=== PATIENT | female | born 1985 | race Caucasian/White ===

== ENCOUNTER 2016-10-04 23:37 | Emergency (ER) | payer MEDICAID ==
[2014-10-31 20:02] VITALS: BMI 53.4
[~2016-10-04 23:37] MED LIST: IBUPROFEN800 MG PO; PERCOCET 10/3251 TA1 PO
[2016-10-05 00:48] LABS: APPEARANCE CLEAR (CLEAR); BILIRUBIN 1+ (NEGATIVE); COLOR DK YELLOW (YELLOW); GLUCOSE NEGATIVE (NEGATIVE); KETONE MODERATE mg/dL (NEGATIVE); LEUKOCYTE ESTERASE NEGATIVE (NEGATIVE); NITRITE NEGATIVE (NEGATIVE); PROTEIN NEGATIVE (NEGATIVE); SPECIFIC GRAVITY 1.015 (1.005-1.020)
[2016-10-05 01:08] LABS: EOSINOPHILS 0.3 % (0-7); HEMATOCRIT 25.8 % (36.0-48.0); HEMOGLOBIN 8.6 g/dL (12-16); IMMATURE GRANULOCYTES 0.6 % (0-5); LYMPHOCYTES 39.7 % (15-50); MCH 29.3 pg (26.0-34.0); MCHC 33.3 g/dL (31.0-37.0); MCV 87.8 fL (80.0-100.0); MEAN PLATELET VOLUME 9.2 fL (7.4-10.4); MONOCYTES 9.5 % (2-11); NEUTROPHILS 48.9 % (40-80); RBC 2.94 10x6/uL (4.00-5.40); RDW 18.5 % (11.5-14.5); WBC 3.2 10x3/uL (4.8-10.8)
[2016-10-05 01:14] LABS: PLATELET COUNT 117 10x3/uL (130-400)
[2016-10-05 01:20] LABS: ALBUMIN 2.8 g/dL (3.4-5.0); ALKALINE PHOSPHATASE 59 U/L (46-116); ALT (SGPT) 59 U/L (10-68); CALC OSMOLALITY 271 mosm/kg (275-300); CALCIUM 7.6 mg/dL (8.5-10.1); CHLORIDE - SERUM 99 mmol/L (98-107); CREATININE - SERUM 0.7 mg/dL (0.6-1.3); GLUCOSE 127 mg/dL (74-106); PROTEIN - SERUM 6.4 g/dL (6.4-8.2); SODIUM 136 mmol/L (136-145); UREA NITROGEN 7 mg/dL (7-18); eGFR NON AFRICAN AMERICAN > 90 mL/min (90-120)
[2016-10-05 01:22] LABS: POTASSIUM - SERUM 2.8 mmol/L (3.5-5.1)
== END 2016-10-05 04:57 | disposition home or self-care (01) ==
LOC: D.ER 23:37
PROVIDERS: Emergency Medicine
DX: M79.1 Myalgia (principal); J01.90 Acute sinusitis, unspecified; R10.11 Right upper quadrant pain